=== PATIENT | male | born 1980 | race Caucasian/White ===

== ENCOUNTER 2024-09-17 13:37 | Emergency (ER) | payer OTHER, SELFPAY ==
--- NOTE | 2024-09-17 13:39 | ED_ITS ---
HPI - Extremity Problem General Chief complaint: Extremity Problem,Nontraumatic Stated complaint: Right Leg Hot/Red Time Seen by Provider: 09/17/24 13:52 Source: patient, RN notes reviewed and old records reviewed Mode of arrival: ambulatory Limitations: no limitations History of Present Illness HPI Narrative: 44-year-old male presents to the [facility] with right lower leg painful, hot, swollen. History of a DVT in the same leg. States that started approximately 1-1 and half weeks ago. Has been traveling a lot for work. Currently not on any blood thinners. Does have a history of high blood pressure. Onset (ago): week(s) (1-1.5) Related Data Home Medications ?Medication ?Instructions ?Recorded ?Confirmed ?Last Taken ?Type carvedilol 12.5 mg tablet mg 09/17/24 Unknown History hydrochlorothiazide 25 mg tablet mg 09/17/24 Unknown History Allergies Allergy/AdvReac Type Severity Reaction Status Date / Time No Known Allergies Allergy Verified 09/17/24 13:54 Review of Systems Review of Systems: All systems reviewed & are unremarkable except as noted in HPI and below Constitutional: Constitutional: Reports no additional constitutional complaint s ENT: Reports system reviewed and no additional complaints, except as documented Cardiovascular: Cardiovascular: Reports no additional cardiovascular complaints, Denies chest pain and Denies dyspnea Respiratory: Respiratory: Reports no additional respiratory complaints, Denies chest congestion, Denies cough and Denies dyspnea Musculoskeletal: Musculoskeletal: Reports as per HPI and Reports abnormal gait Integumentary/Breasts: Skin/Breast: Reports system reviewed and no additional complaints, except as docu PMFSH Past Medical History Medical History History of high blood pressure History of DVT in adulthood Comments At the time of my signature, I reviewed and agree with the nursing past medical, surgical, social, and family history. There is no relevant family history pertinent to the patient complaint. Exam Const: General: cooperative, healthy appearing, comfortable, no acute distress, well developed, alert and well nourished Nutritional Appearance: well nourished Orientation/consciousness: patient oriented x3 Limitations: no limitations HENMT: Head: normal to inspection Eyes: General: appearance normal, both eyes and all related structures Alignment and Position: alignment normal Neck: Neck: normal visual inspection, full ROM, no lymphadenopathy and no meningeal signs Chest: Chest palpation & inspection: normal inspection of the chest Resp: Effort & Inspection: normal respiratory effort and able to speak in complete sentences Cardio: Rate: regular rate Skin: General skin exam: no rashes or lesions noted Neuro: General: patient oriented x3, moves all extremities and no meningeal signs Cognition (Neuro): normal cognition Speech: normal speech Gait exam (Neuro): Normal gait present Extrem: General: normal to inspection, full ROM, capillary refill normal, abnormal gait and edema right Right lower extremity: lower leg Details: erythema, tenderness and warmth; no ecchymosis and no crepitus Other: Patient with right lower leg edema, 3 cm greater than left. Patient with significant erythema, circumferential Psych: Appearance: grossly normal and well kempt Mental Status: mental status grossly normal Speech and movement: Normal speech and movement present and Clear speech present Affect: normal affect Attitude: cooperative Course Course Level of Care: Express Care Visit Vital Signs Vital signs: Vital Signs Temperature 99.1 F 09/17/24 13:44 Pulse Rate 78 09/17/24 13:44 Respiratory Rate 20 09/17/24 13:44 Blood Pressure 163/98 H 09/17/24 13:44 Pulse Oximetry 95 09/17/24 13:44 Oxygen Delivery Room Air 09/17/24 13:44 Temperature 99.1 F 09/17/24 13:44 Pulse Rate 78 09/17/24 13:44 Respiratory Rate 20 09/17/24 13:44 Blood Pressure 163/98 H 09/17/24 13:44 Pulse Oximetry 95 09/17/24 13:44 Oxygen Delivery Room Air 09/17/24 13:44 Reviewed Transfer Transfered to: [facility] Transportation: Other (POV) Transfer rationale: Patient with swelling, 3 cm greater than opposite leg, redness, history of DVT sending to rule out DVT Accepting physician: Dr. Gonsales, spoke with Sampson CABA MDM - Extremity (Nontraumatic) MDM Narrative Medical decision making narrative: Patient sitting in exam room. Nontoxic, vitals stable. Patient in no acute distress. Patient presents with right lower leg pain, swelling, redness for1- 1.5 weeks. Patient history of DVT in same leg, sending to rule out Transfer instructions reviewed with patient go directly to the ER. All questions have been answered, and the patient deny any further questions Some parts of this dictation were generated by voice recognition software and may contain typographical and/or grammatical inaccuracies. Differential Diagnosis Differential diagnosis: Likely cellulitis, superficial thrombophlebitis, lower extremity edema and deep vein thrombosis of lower extremity Critical Care Time Critical Care Time Critical Care Time: No Discharge Plan Discharge Clinical Impression: Lower extremity edema, History of deep venous thrombosis (DVT) of distal vein of right lower extremity Patient Disposition: Acute Care Hospital Condition: Stable Patient Language: Malaysian Prescriptions: No Action carvedilol 12.5 mg tablet hydrochlorothiazide 25 mg tablet Follow-up/Referrals: UNKNOWN,DOCTOR [Primary Care Provider] -
[2024-09-17 13:44] VITALS: BP 163/98; PULSE 78; RESP 20; TEMP 37.3; O2SAT 95
--- OUTSIDE RECORDS SUMMARY | 2024-09-17 13:44 | XMS_ITS | Encounter Summary ---
Author Organization [facility] Address [address] [place] [address] Care Team Providers Care Leaf Stripper Name Role Phone ShermanLulú bingham Leopoldo MANAGER SEARCH ENGINE Primary Care Provider [phone] Encounter Details Date Type Department Care Team (Late Contact Info) Description 07/20/2024 Orders Only [facility] Primary Care [place] [address] [facility] [address] [place] [address] Tarsha Kendrick NP [address] [facility] [address] [place] [address] Lesion of left eyelid Social History Tobacco Use Types Packs/Day Years Used Date Smoking Tobacco: Never Smokeless Tobacco: Never Alcohol Use Standard Drinks/Week Comments Yes 0 (1 standard drink = 0.6 oz pur e alcohol) occ Sex and Gender Information Value Date Recorded Sex Assigned at Not on file Legal Sex Male 10:06 PM CDT Gender Identity Not on file Sexual Orientation Not on file documented as of this encounter Plan of Treatment Upcoming Encounters Date Type Department Care Team (Late Contact Info) Description 05/16/2025 9:45 AM AIR AND MISSILE DEFENSE CREWMEMBER [facility] [address] [place] [phone] Dawit Ballesteros MD [address] [place] [address] documented as of this encounter Procedures Procedure Name Priority Date/Time Associated Diagnosis Comments AMB REFERRAL TO DERMATOLOGY Routine 07/20/2024 12:07 PM AIR AND MISSILE DEFENSE CREWMEMBER Lesion of left eyelid documented in this encounter Results * Ambulatory referral to Dermatology (07/20/2024 12:07 PM AIR AND MISSILE DEFENSE CREWMEMBER) Tarsha Kendrick NP OUTPATIENT REFERRAL ORDERABLES F inal Result documented in this encounter Visit Diagnoses Diagnosis Lesion of left eyelid documented in this encounter Care Teams Leaf Stripper Relationship Specialty Start Date End Date Lulú Marks NP PCP - General Nurse Practitioner Family 05/20/23 documented as of this encounter
--- OUTSIDE RECORDS SUMMARY | 2024-09-17 13:45 | XMS_ITS | Clinical Summary ---
Author Organization [facility] Address [address] [place] [address] Care Team Providers Care Supervisor Firearms Name Role Phone Lulú Marks Ann GUITAR INSTRUCTOR Primary Care Provider [phone] Allergies No known active allergies Medications cyclobenzaprine (FLEXERIL) 10 MG tablet TAKE 1 TABLET (10 MG TOTAL) BY MOUTH 2 (TWO) TIMES A DAY NEEDED FOR MUSCLE SPASMS 09/13/2023 Active hydroCHLOROthiaz oscar (HYDRODIURIL) 25 MG tablet Take 1 tablet (25 mg total) by mouth every morning. 30 tablet 11 10/23/2023 Active carvedilol (COREG) 12.5 MG tablet Take 1 tablet (12.5 mg total) by mouth 2 (two) times daily. 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) 024 Hypertension Family History Medical History Relation Comments Stroke Father Stroke Maternal Grandfather Open Heart Maternal Grandmother Stent Cardiac Maternal Grandmother Heart Attack Paternal Grandfather Open Heart Paternal Grandfather Stent Cardiac Paternal Grandfather Stroke Paternal Grandfather Relation Status Comments Father Alive Maternal Grandfather Maternal Grandmother Mother Alive Paternal Grandfather Social History Tobacco Use Types Packs/Day Years Used Date Smoking Tobacco: Never Smokeless Tobacco: Never Tobacco Cessation:Counseling Given: Not Answered Alcohol Use Standard Drinks/Week Comments No 0 (1 standard drink = 0.6 oz pur e alcohol) Sex and Gender Information Value Date Recorded Sex Assigned at Not on file Legal Sex Male 4:41 PM MACHINE TENDER Gender Identity Not on file Sexual Orientation Not on file Last Filed Vital Signs Vital Sign Reading Time Taken Comments Blood Pressure 116/80 03/12/2024 1:16 PM CDT Pulse 90 03/12/2024 1:16 PM CDT Temperature 38.8 C (101.8 F) 08/20/2017 6:07 PM MACHINE TENDER told Abigail Everett NP pt's temp. Pt to take tylenol at home. Respiratory Rate 18 08/20/2017 4:49 PM MACHINE TENDER Oxygen Saturation 96% 03/12/2024 1:1 6 PM CDT Inhaled Oxygen Concentration - - Weight 122 kg (269 lb) 03/12/2024 1:16 PM CDT Height 185.4 cm (6' 1 ) 03/12/2024 1:16 PM CDT Body Mass Index 35.49 03/12/2024 1:16 PM CDT Plan of Treatment Health Maintenance Due Date Last Done Comments Colorectal Cancer Screening Colonoscopy (10 Years) 1979 Annual Physical 1982 DTaP, Tdap and Td Vaccines (5 - Tdap) 1990 10/24/1980, 1979, 1979, Additional history exists Hepatitis C 1997 Hepatitis B Vaccines (1 of 3 - 19+ 3-dose series) 1998 COVID-19 Vaccine ( season) 2024 HPV Vaccines Aged Out No longer eligi ble based on patient's age to complete this topic Meningococcal B Vaccine Aged Out No l onger eligible based on patient's age to complete this topic Meningococcal Vaccine Aged Out No jennifer armando eligible based on patient's age to complete this topic Pneumococcal Vaccine: Pediatrics (0 to 5 Years) and At-Risk Patients (6 to 64 Years) Aged Out No longer eligible based on patient's age to complete this topic RSV Immunizations Under 20 Months Aged Out No longer eligible based on patient's age to complete this topic Insurance [employer] [facility] Care Teams Supervisor Firearms Relationship Specialty Start Date End Date Lulú Marks FNP [facility] [address] [place] [address] PCP - General FAMILY PRACTICE 10/22/23
--- OUTSIDE RECORDS SUMMARY | 2024-09-17 13:45 | XMS_ITS | Clinical Summary ---
Author Organization [facility] Address [address] [place] [address] Care Team Providers Care Gold Tooler Name Role Phone Lulú Marks BITUMINOUS PAVING MACHINE OPERATOR-C Primary Care Provider [phone] Allergies No known active allergies Medications Medication Sig Dispensed Refills Start Date End Date Status cyclobenzaprine (FLEXERIL) 10 MG tablet Take 1 tablet (10 mg) by mouth 2 times daily as needed 12/31/2021 Active Active Problems No known active problems Encounters Date Type Department Care Team Description 08/04/2024 9:50 AM OWNER ORAL SURGEON Procedure visit [facility] [address] [place] [address] Lee Chino MD Sacroiliitis, not elsewhere classified 07/29/2024 8:40 AM OWNER ORAL SURGEON Ancillary Procedure [facility] [address] [place] [address] Lee Chino MD Low back pain, unspecified back pain laterality, unspecified chronicity, unspecified whether sciatica present 07/29/2024 8:40 AM OWNER ORAL SURGEON Office Visit [facility] [address] [place] [address] Lee Chino MD Other chronic pain (Primary Dx); Sacroiliitis, not elsewhere classified; Low back pain, unspecified back pain laterality, unspecified chronicity, unspecified whether sciatica present; Lumbar spondylosis; Degeneration of intervertebral disc of lumbar region, unspecified whether pain present 07/28/2024 Orders Only [facility] [address] [place] [address] Lee Chino MD Low back pain, unspecified back pain laterality, unspecified chronicity, unspecified whether sciatica present (Primary Dx) from Last 3 Months Family History Medical History Relation Name Comments Alzheimer's Disease Other Diabetes Other Heart Disease Other High Cholesterol Other Rheum Arthritis Other Relation Name Status Comments Other Social History Tobacco Use Types Packs/Day Years Used Date Smoking Tobacco: Never Smokeless Tobacco: Never Tobacco Cessation:Counseling Given: Not Answered Sex and Gender Information Value Date Recorded Sex Assigned at Not on file Gender Identity Not on file Sexual Orientation Not on file Last Filed Vital Signs Vital Sign Reading Time Taken Comments Blood Pressure 128/84 08/04/2024 10:27 AM OWNER ORAL SURGEON Pulse - - Temperature - - Respiratory Rate - - Oxygen Saturation - - Inhaled Oxygen Concentration - - Weight 117.9 kg (260 lb) 08/04/2024 10:27 AM OWNER ORAL SURGEON Height 185.4 cm (6' 1 ) 08/04/2024 10:27 AM OWNER ORAL SURGEON Body Mass Index 34.3 08/04/2024 10:27 AM OWNER ORAL SURGEON Plan of Treatment Upcoming Encounters Date Type Department Care Team (Late st Contact Info) Description 11/01/2024 8:20 AM CDT Office Visit [facility] [address] [place] [address] Lee Chino MD [address] [place] [phone] Health Maintenance Due Date Last Done Comments HIV Screening 1979 Hepatitis C Screening ages 1 8 to 79 once 1979 MMR VACCINES (1 of 1 - Stand nikia series) 1980 YEARLY WELLNESS EXAM 1982 DEPRESSION SCREENING 1991 BMI Above/Below Normal Parameters 1997 ADULT TETANUS 1998 HEPATITIS B VACCINES (1 of 3 - 19+ 3-dose series) 1998 LIPID TESTING 2014 Influenza Vaccine 01/15/2024 COVID-19 Immunization (1 - 2 season) 2024 Colon Cancer Screening 2024 Zoster Vaccine (Recombinant Vaccine) (1 of 2) 2029 HEPATITIS A VACCINES Aged Out No long er eligible based on patient's age to complete this topic HIB VACCINES Aged Out No longer eligi ble based on patient's age to complete this topic HPV VACCINES Aged Out No longer eligi ble based on patient's age to complete this topic IPV VACCINES Aged Out No longer eligi ble based on patient's age to complete this topic MENINGOCOCCAL VACCINE Aged Out No jennifer armando eligible based on patient's age to complete this topic Pneumococcal Vaccine: Peds(0 to 5 Years) & At-Risk Patients (6 to 64 Years) Aged Out No longer eligible b ased on patient's age to complete this topic ROTAVIRUS VACCINES Aged Out No longer eligible based on patient's age to complete this topic Procedures Procedure Name Priority Date/Time Associated Diagnosis Comments CA INJECT SI JOINT ARTHRGRPHY&/ANES/ST EROID W/ELOISA Routine 08/04/2024 9:50 AM OWNER ORAL SURGEON Sacroiliitis, not elsewhere classified XR LUMBAR SPINE MIN 4 VIEWS Routine 07/29/2024 9:07 AM OWNER ORAL SURGEON Low back pain, unspecified back pain laterality, unspecified chronicity, unspecified whether sciatica present XR PELVIS 1 OR 2 VIEWS Routine 07/29/2024 9:07 AM OWNER ORAL SURGEON Low back pain, unspecified back pain laterality, unspecified chronicity, unspecified whether sciatica present from Last 3 Months Results * CA INJECT SI JOINT ARTHRGRPHY&/ANES/STEROID W/ELOISA (08/04/2024 9:50 AM OWNER ORAL SURGEON) Narrative Lee Chino MD - 08/04/2024 9:50 AM OWNER ORAL SURGEON Lee Chino MD 08/04/2024 1:26 PM Patient: Nickolas Echavarria Date of : 1980 Date: 08/04/24 Visit Type: Procedure PROCEDURE Vital Signs Vitals: 08/04/24 1027 BP: 128/84 Weight: (!) 260 lb (117.9 kg) Height: 6' 1 Pre Procedure Sacroiliac Joint Injection Bilateral SUBJECTIVE: This patient presents with a diagnosis of Right and Left sacroiliitis. Patient has tried conservative therapy and medications for at least 6 months which have provided no significant relief. Patient is here today for Right and Left sacroiliac joint injection. OBJECTIVE: Heart: No pitting edema. Lungs: No labored breathing. Abdomen: Nondistended. Psych: Mood is good. Musculoskeletal: No changes from last encounter. ASSESSMENT: Chronic Pain. Bilateral sacroiliitis PLAN: I will do Sacroiliac Joint Injection Right and Left today. Procedure Sacroiliac Joint Injection Bilateral PRE-PROCEDURE DIAGNOSIS: 1. Chronic pain. 2. Right and Left sacroiliitis. POST-PROCEDURE DIAGNOSIS: 1. Chronic pain. 2. Right and Left sacroiliitis. PROCEDURE: Bilateral sacroiliac joint injection, with fluoroscopy. INDICATION FOR PROCEDURE: This patient has sacroiliac joint pain. Patient is here today for sacroiliac joint injection. INFORMED CONSENT: After reviewing the procedure including the risks (including bleeding, infection, nerve damage), benefits and alternatives with the patient, an informed consent was obtained to proceed with the injection and the consent form was signed. DESCRIPTION OF THE PROCEDURE: The patient was placed in the prone position on the fluoroscopy table. Fluoroscopy was used to identify the needle entry point for the right sacroiliac joint injection, to reach the inferior aspect of the joint. The sacral and buttock area was prepped with chlorhexidine solution and draped with sterile drape. Sterile technique was used for the entire procedure. The needle entry point was infiltrated with 20 mg of lidocaine 1% . A 25-gauge spinal needle was advanced to the posterior margin of the inferior aspect of the sacroiliac joint. With the needle in the appropriate position, 20 mg of kenalog 40 mg/ml with 12.5 mg 0.5 % bupivacaine for a total volume of 3.0 mL was injected. Fluoroscopic images were saved during the injection. The procedure was repeated on the opposite side with the same amount of corticosteroids and local anesthetic. A total of 40 mg of kenalog 40mg/mL was used. Fluoroscopic images were saved during the injection today. ASSESSMENT: The procedure was well tolerated and there were no apparent complications. The patient had decreased pain from the injected local anesthetic. DISCHARGE PLAN: Discharge instructions were given by nursing staff. DISPOSITION: The patient was discharged home. Lee Chino MD TITomás: Gray Chow Lee Chino MD PROCEDURE/MINOR SURG ICAL ORDERABLES * XR PELVIS 1 OR 2 VIEWS (07/29/2024 9:07 AM OWNER ORAL SURGEON) Anatomical Region Laterality Modality Pelvis Computed Radiogr aphy Impressions 08/02/2024 10:42 AM OWNER ORAL SURGEON : A/P Pelvis 1 or 2 Views shows Left iliac crest higher than right iliac crest , Right pubic symphysis wider than left pubic symphysis , and Moderate osteoarthritis Lumbosacral Min 4 Views shows Moderate DDD and Moderate spondylosis COMMENTS: For additional information on recommendations, please see office note. Narrative 08/02/2024 10:42 AM OWNER ORAL SURGEON IMAGING PROCEDURE: XR PELVIS 1 OR 2 VIEWS INDICATION: Low back pain, unspecified back pain laterality, unspecified chronicity, unspecified whether sciatica present Lee Chino MD [facility] IM DIAG ORDERAB LES * XR LUMBAR SPINE MIN 4 VIEWS (07/29/2024 9:07 AM OWNER ORAL SURGEON) Anatomical Region Laterality Modality L-spine Computed Radiogr aphy Impressions 08/02/2024 10:42 AM OWNER ORAL SURGEON : A/P Pelvis 1 or 2 Views shows Left iliac crest higher than right iliac crest , Right pubic symphysis wider than left pubic symphysis , and Moderate osteoarthritis Lumbosacral Min 4 Views shows Moderate DDD and Moderate spondylosis COMMENTS: For additional information on recommendations, please see office note. Narrative 08/02/2024 10:42 AM OWNER ORAL SURGEON IMAGING PROCEDURE: XR LUMBAR SPINE MIN 4 VIEWS INDICATION: Low back pain, unspecified back pain laterality, unspecified chronicity, unspecified whether sciatica present Lee Chino MD [facility] DIAG ORDERAB LES from Last 3 Months Care Teams Gold Tooler Relationship Specialty Start Date End Date Lulú Marks FNP-Gray [address] [place] [address] PCP - General Nurse Practitioner-Family 07/29/24
--- OUTSIDE RECORDS SUMMARY | 2024-09-17 13:45 | XMS_ITS | Encounter Summary ---
Author Organization [facility] Address [address] [place] [address] Care Team Providers Care Loading Supervisor Name Role Phone Lulú Marks Primary Care Provider [phone] Encounter Details Date Type Department Care Team (Late st Contact Info) Description 10/23/2023 Abstract [facility] [address] [place] [address] Max Krishnamurthy MD [address] [place] [address] Social History Tobacco Use Types Packs/Day Years Used Date Smoking Tobacco: Never Smokeless Tobacco: Never Alcohol Use Standard Drinks/Week Comments No 0 (1 standard drink = 0.6 oz pur e alcohol) Sex and Gender Information Value Date Recorded Sex Assigned at Not on file Legal Sex Male 4:41 PM SPLICER HELPER Gender Identity Not on file Sexual Orientation Not on file documented as of this encounter Plan of Treatment Not on file documented as of this encounter Visit Diagnoses Not on filedocumented in this encounter Care Teams Loading Supervisor Relationship Specialty Start Date End Date Lulú Marks FNP [address] [place] [address] PCP - General FAMILY PRACTICE 10/22/23 documented as of this encounter
--- OUTSIDE RECORDS SUMMARY | 2024-09-17 13:45 | XMS_ITS | Continuity of Care Document ---
Author Organization [facility] Address [address] [place] [address] Phone Care Team Providers Care Access Assoc Name Role Phone Lee Chino MD Unavailable Unavailable Allergies, Adverse Reactions, Alerts Substance Reaction Status Criticality No Known Allergies Active No Inform ation Medications Medication Instructions Dosage Effective Dates (start - stop) Status Comments cyclobenzaprine 7.5 mg tablet - Active Procedures Procedure Date Kenalog Inj Procedure Sacroilliac Joint w/fluoro scopy Inc Arthrography Inj Procedure Sacroilliac Joint w/fluoro scopy Inc Arthrography UN10 Kenalog Office/outpatient visit,est, mod 2023 Inj Procedure Sacroilliac Joint w/fluoro scopy Inc Arthrography UN10 Kenalog Spine Xray Lumbosacral Min Of 4 Views Ma Pelvis Xray 1 Or 2 Views (Includes Judet ) Office/outpatient visit,est, mod 2023 UN10 Kenalog Inj Procedure Sacroilliac Joint w/fluoro scopy Inc Arthrography Office/outpatient visit,est, mod 2022 Inj(s) Lumbar Epidural W Fluoro Guidance UN10 Kenalog Inj Procedure Sacroilliac Joint w/fluoro scopy Inc Arthrography UN10 Kenalog Spine Xray Lumbosacral Min Of 4 Views Pelvis Xray 1 Or 2 Views (Includes Judet ) [place] [facility] [place] Initial inpatient consult, minor 2007 Advance Directives Directive Yes / No Effective Date File Name No Information Encounters Encounter Description Practice Location Reason(s) For Visit Diagnoses Date Provider Providers Copied on Encounter [facility], [address] [place] [address], [id number], tel:[phone] OI Procedure Room Sacroiliitis, not elsewhere classifiedOther chronic painElevated blood-pressure reading, w/o diagnosis of htn 4 Matti Howard. [address], [place], [place], [id number] , [place]. tel:[phone] Referring Provider: Lee Rao, [address], [place], [address] . tel:[phone] Office/outpa tient visit,est, mod [facility], [address] [place] [address], [id number], tel:[phone] [place] Office lumbar spine (chief complaint) Elevated blood-pressure reading, w/o diagnosis of htnBody mass index (BMI) 34.0-34.9, adultOther chronic painSacroiliitis, not elsewhere classified 4 Matti Howard. [address], [place], [place], [id number] , [place]. tel:[phone] Referring Provider: Lee Rao, [address], [place], [address] . tel:[phone] [facility], [address] [place] [address], [id number], tel:[phone] OI Procedure Room Body mass index (BMI) 34.0-34.9, adultEncounter for exam of blood pressure w/o abnormal findingsOther chronic painSacroiliitis, not elsewhere classified 4 Matti Howard. [address], [place], [place], [id number] , [place]. tel:[phone] Referring Provider: Lee Rao, [address], [place], [address] . tel:[phone] Office/outpa tient visit,[facility], [address] [place] [address], [id number], tel:[phone] [place] [facility] lumbar spine pain (chief complaint) Body mass index (BMI) 34.0-34.9, adultOther chronic painLow back pain, unspecifiedSacroi liitis, not elsewhere classifiedLumbar spondylosisDDD (degenerative disc disease), lumbar Aug-0 4 Matti Howard. [address], [place], [place], [id number] , [place]. tel:[phone] Referring Provider: Lee Rao, [address], [place], [address] . tel:[phone] [facility], [address] [place] [address], [id number], tel:[phone] OISI Procedure Room Sacroiliitis, not elsewhere classifiedOther chronic pain 3 Matti Howard. [address], [place], [place], [id number] , [place]. tel:[phone] Referring Provider: Lee Rao, [address], [place], [address] . tel:[phone] Office/outpa tient visit,[facility], [address] [place] [address], [id number], tel:[phone] [place] [facility] lumbar spine (chief complaint) Body mass index (BMI) 34.0-34.9, adultEncounter for exam of blood pressure w/o abnormal findingsLow back pain, unspecifiedSacroi liitis, not elsewhere classifiedOther chronic pain Apr- 3 Matti Howard. [address], [place], [id number] , [place]. tel:[phone] Referring Provider: Lee Rao, [address], [place], [address] . tel:[phone] [facility], [address] [place] [address], [id number], tel:[phone] OI Procedure Room Radiculopathy, lumbar regionOther chronic pain Jan- 3 Matti Howard. [address], [place], [id number] , [place]. tel:[phone] Referring Provider: Lee Rao, [address], [place], [address] . tel:[phone] [facility], [address] [place] [address], [id number], tel:[phone] OI Procedure Room Sacroiliitis, not elsewhere classifiedOther chronic pain 3 Matti Howard. [address], [place], [id number] , [place]. tel:[phone] Referring Provider: Lee Rao, [address], [place], [address] . tel:[phone] Office/outpa tient visit,[facility], [address] [place] [address], [id number], tel:[phone] [place] Office lumbar spine (chief complaint) Low back pain, unspecifiedOther chronic painLumbar spondylosisDDD (degenerative disc disease), lumbarSacroiliiti s, not elsewhere classifiedLumbar radiculopathy Jan-0 3 Matti Howard. [address], [place], [id number] , [place]. tel:[phone] Referring Provider: Lee Rao, [address], [place], [address] . tel:[phone] Initial inpatient consult, minor [facility], [address] [place] [address], [id number], tel:[phone] [facility] No Information [address], [place], [place], [id number] , [place]. tel:[phone] Family History Family Member Type Diagnosis Age At Onset Problem Family history of hyperchole sterolemia Problem Family history of alzheimer' s disease Problem Family history of Diabetes m ellitus Problem Family history of Arthritis Problem Family history of chronic ob structive lung disease Problem Family history of Cardiovasc ular disease Payers Payer name Insurance type Covered green party ID Loly jane(s) Zafar [id number] Social History Type Description Quantity Date Captured Comments Alcohol Use Details Unknown Caffeine Use Details Unknown Tobacco Use Status No Information Smoking Status No Information Sex Male Vital Signs Date / Time: Height Weight BMI Pulse Rate Blood Pressure Temperature Respiratory Rate Body Surface Area Head Circumference Head Circ. Percentile Wt./Rizwan. Percentile BMI percentile Pulse Ox Inhaled Ox 8:54 AM 73.00 in 69 /min 141/93 mm[Hg] Chief Complaint And Reason For Visit No Information Reason For Referral Reason For Referral No Information Plan Of Treatment Date Type Action Status Future Order: Radiology Order Pe lvis Xray 1 Or 2 Views (Includes Judet) ([id number]), Ordered on: Ordered Future Order: Radiology Order Sp ine Xray Lumbosacral Min Of 4 Views ([id number]), Ordered on: Ordered Future Order: Radiology Order Pe lvis Xray 1 Or 2 Views (Includes Judet) ([id number]), Ordered on: Ordered Future Order: Radiology Order Sp ine Xray Lumbosacral Min Of 4 Views ([id number]), Ordered on: Ordered History Of Present Illness Encounter Date Complaint History Of Prese nt Illness lumbar spine Mr Echavarria is a 43 year old male who complains of lumbar spine. He presents with pain. He states that the symptoms have been chronic non-traumatic. The symptoms occur constantly with intermittent worsening. Currently the patient states that the symptoms are moderate-severe. The pain is described as aching and constant, pressure, and spasms. The symptoms occur continuously. He rates his best pain as 7/10. He rates his current pain as 8/10. Prior muscle relaxants include flexeril. Patient had bilateral SI joint injections on 08/22/23 with 80% pain relief with increased daily function over the course of 3 months. Patient has had previous therapy. Patient has attended at least 6 weeks of physical therapy in the past year and does physician directed at home exercises daily. lumbar spine pain Mr Echavarria is a 43 year old male who complains of lumbar spine pain. He presents with pain. He states that the symptoms have been chronic non-traumatic. The symptoms occur constantly with intermittent worsening. Currently the patient states that the symptoms are moderate-severe. The pain is described as aching and pressure, tingling, sharp, stabbing, spams. The symptoms occur continuously. He rates his current pain as 8/10. Patient had bilateral SI joint injection 05/21/24 with 80% pain relief and increased function for at least 3 months. Patient has had previous therapy. Patient had at least 6 weeks of physical therapy with minimum relief. lumbar spine Mr Echavarria is a 43 year old male who complains of lumbar spine. He presents with pain. The patient states that the symptoms have been chronic non-traumatic for Over 6 months. The symptoms occur constantly with intermittent worsening. Currently the patient states that the symptoms are moderate-severe. The pain is described as aching, dull and numbness, tingling, sharp, spasms. The symptoms occur continuously. The patient is experiencing pain in the following location: lower back. He rates his current pain as 7/10. The patient has had a previous x-ray. Prior NSAIDs include unspecified NSAIDS. Patient received a bilateral SI joint injection on 01/24/2023. Patient reported 80% pain relief with increased daily function for 2 months. Patient also received a right L5-S1 lumbar epidural steroid injection on 02/07/2023. Patient reported 80% pain relief with increased daily function for 2 months. Patient previously completed at least 6 weeks of formal physical therapy on his low back within the last 6 months and stated that it was helpful in relieving his low back pain when completed. lumbar spine Mr Echavarria is a 42 year old male who complains of lumbar spine. He presents with pain. He states that the symptoms have been chronic non-traumatic. The symptoms occur constantly with intermittent worsening. Currently the patient states that the symptoms are moderate-severe. The pain is described as numbness, tingling, sharp, shooting, spasms, stabbing. The symptoms occur continuously. The patient is experiencing pain in the following location: lower back. He rates his best pain as 5/10. He rates his worst pain as 9/10. He rates his current pain as 8/10. The pain radiates from the lower back then to the right foot. The symptoms are aggravated by standing and walking. Nickolas states that the symptoms are relieved by bending and sitting. The patient has had a previous x-ray and MRI. Prior muscle relaxants include flexeril. He reports no change. Prior NSAIDs include unspecified NSAIDS. Prior pain medications include tylenol. Patient has not previously received an injection for his low back pain. Patient stated that he previously attended 6 weeks of formal physical therapy at [facility] in [place], [place]. Patient finished PT in June 2022 and reports it was ineffective. Patient reports he does home exercises regularly. Patient reports no history of lumbar spine surgery. Patient reports he does not desire surgery at this time. Functional Status Date Functional Assessmen t No Information Instructions Date Instruction Additional Infor emory Giving encouragement to exercise Related to Elevated blood-pressure reading w/o diagnosis of HTN Patient presented wi th lower back pain consistent with sacroiliitis that is impacting the patient's ability to complete activities of daily living and rates their pain at a 6/10. The patient has completed at least 6 weeks of physical therapy/physician directed home exercises with minimal relief. The patient has tried oral medications with minimal relief. The patient does not desire surgery at this time. I do believe that the patient will benefit from a bilateral SI joint injection.Bilateral SI joint injection - patient continues to present with pain despite conservative treatment. I will perform a bilateral SI joint steroid injection. Risks, benefits, procedure were explained to the patient. Patient is willing to proceed with the injection. Patient was shown home exercise, small circles, patient was able to reverse demonstrate. Patient was instructed to complete exercise for 3-5 minutes before every meal and at bedtime. Patient will return to clinic after 12 weeks after injection, sooner if needed. Patient agrees to plan. Clinical information from today's visit shared with patient's PCP. Related to Other chronic pain Giving encouragement to exercise Related to Elevated blood-pressure reading, w/o diagnosis of htn Giving encouragement to exercise Related to Body mass index [BMI] 34.0-34.9, adult Giving encouragement to exercise Related to Body mass index [BMI] 34.0-34.9, adult Hypertension education Related t o BP check Patient presented wi th lower back pain consistent with sacroiliitis -- moderate to severe pain between the upper level of the iliac crests and the gluteal fold. Furthermore, the patient presents with positive Gaenslen's, Slick's, Thigh thrust testing. The patient rates this pain at an intensity of at least 8-9/10 and states that it began over 3 months ago. The patient has completed at least 6 weeks of physical therapy / physician directed home exercises with minimal relief but will continue the home exercise plan. The patient has received 80% pain relief and increased function from previous steroid injections. I do believe that the patient will benefit from bilateral SI joint injections.Patient has received X-rays of the lumbar spine without contrast within the past 6 months Bilateral SI joint injection - patient continues to present with pain despite conservative treatment. I will perform a bilateral SI joint steroid injection. Risks, benefits, procedure were explained to the patient. Patient is willing to proceed with the injection.Patient was shown home exercise, small circles, patient was able to reverse demonstrate. Patient was instructed to complete exercise for 3-5 minutes before every meal and at bedtime.Patient will return to clinic after 12 weeks, sooner if needed. Patient agrees to plan.Clinical information from today's visit shared with patient's PCP. Related to Other chronic pain Giving encouragement to exercise Related to Body mass index [BMI] 34.0-34.9, adult Giving encouragement to exercise Related to Body mass index [BMI] 34.0-34.9, adult Patient presented wi th lower back pain consistent with sacroiliitis -- moderate to severe pain between the upper level of the iliac crests and the gluteal fold. Furthermore, the patient presents with positive Gaenslen's, Slick's, Thigh thrust testing. The patient rates this pain at an intensity of at least 6/10 and states that it began over 3 months ago. The patient has completed at least 6 weeks of physical therapy/physician directed home exercises with minimal relief but will continue the home exercise plan. The patient has received 80% pain relief and increased function from previous steroid injections. I do believe that the patient will benefit from bilateral SI joint injections. Bilateral SI joint injection - patient continues to present with pain despite conservative treatment. I will perform a bilateral SI joint steroid injection. Risks, benefits, procedure were explained to the patient. Patient is willing to proceed with the injection. Patient has received X-rays of the lumbar spine without contrast within the past 6 months. Patient was shown home exercise, small circles, patient was able to reverse demonstrate. Patient was instructed to complete exercise for 3-5 minutes before every meal and at bedtime.Patient will return to clinic after 12 weeks, sooner if needed. Patient agrees to plan.Clinical information from today's visit shared with patient's PCP. Related to Other chronic pain Giving encouragement to exercise Related to Body mass index [BMI] 34.0-34.9, adult Giving encouragement to exercise Related to Blood pressure check I reviewed [facility] contrast dated 03-11-22 at [facility] imaging report and imaging reviewed with the patient shows disc protrusion with mild narrowing of central canal and neural foramina at L4-5, disc herniation at L5-S1, and diffuse bulge at L2-3 and 3-4.Patient presented with lower back pain consistent with sacroiliitis that is impacting the patient's ability to complete activities of daily living. The patient has tried oral medications with minimal relief. The patient does not desire another surgery at this time. I do believe that the patient will benefit from a bilateral SI joint injection. Bilateral SI joint injection - patient continues to present with pain despite conservative treatment. I will perform a bilateral SI joint steroid injection. Risks, benefits, procedure were explained to the patient. Patient is willing to proceed with the injection. Patient presented with radiating pain from the right side of the lower back down the leg. The patient has tried oral medications with minimal relief and does not desire surgery at this time. I do believe that the patient will benefit from a right L5-S1 LESI.right L5-S1 LESI - patient continues to present with pain despite conservative treatment. I will perform a right L5-S1 lumbar epidural steroid injection. Risks, benefits, procedure were explained to the patient. Patient is willing to proceed with the injection.patient presented to the clinic with sacroiliitis and lumbar radiculopathy. I believe the patient will benefit from formal physical therapy for his low back at [facility] in [place] with Kourtney. Patient was shown home exercise, small circles, patient was able to reverse demonstrate. Patient was instructed to complete exercise for 3-5 minutes before every meal and at bedtime.Patient will return to clinic after 12 weeks, sooner if needed. Patient agrees to plan.Clinical information from today's visit shared with patient's PCP. Related to Other chronic pain Assessments Type Assessment Date assessment Sacroiliitis, not elsewhere clas sified assessment Other chronic pain assessment Elevated blood-pressure reading w/o diagnosis of HTN Patient Care Teams Name Effective Dates (start - stop) Status Members No Information
--- OUTSIDE RECORDS SUMMARY | 2024-09-17 13:45 | XMS_ITS | Clinical Summary ---
Author Organization [facility] Address [address] [place] [address] Care Team Providers Care Pediatric Lpn Name Role Phone Lulú Marks Leopoldo WINSTON Primary Care Provider [phone] Allergies No known active allergies Medications cyclobenzaprine (FLEXERIL) 10 mg tabletIndication s:Lumbar paraspinal muscle spasm Take 1 tablet (10 mg total) by mouth 2 (two) times a day as needed for muscle spasms 60 tablet 4 Active carvediloL (COREG) 12.5 mg tablet Take 1 tablet (12.5 mg total) by mouth 2 (two) times a day 4 Active hydroCHLOROthiaz oscar (HYDRODIURIL) 25 mg tablet Take 1 tablet (25 mg total) by mouth every morning 4 Active losartan (COZAAR) 100 mg tabletIndication s:Hypertension, unspecified type Take 1 tablet by mouth once daily 30 tablet 4 Active Additional Information Patient not taking.Reported on 05/10/2024 Active Problems Problem Noted Date Diagnosed Date Rhinitis 05/10/2024 HAN (obstructive sleep apnea) 12/09/2023 Snoring 10/30/2023 Sleep disorder 10/30/2023 Lumbar paraspinal muscle spasm 09/02/2023 Hypertension 08/04/2023 Hypertensive urgency 06/29/2023 Overview (06/29/2023): TO MONITOR & JOURNAL BP. TO OBTAIN NEW CUFF. FOLLOW LOW SODIUM DIET. AVOID STRENOUS ACTIVITY UNTIL BP LOWERS. TO SEEK ER SERVICES IF WORSENING BP. 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 Encounters Date Type Department Care Team Description 07/20/2024 Orders Only [facility] Primary Care [address] [place] [address] Tarsha Kendrick, CATRACHITO Lesion of left eyelid from Last 3 Months Immunizations Name Administration Dates Next Due DTP 10/24/1980,1979,1979 ,1979 OPV 10/24/1980,1979,1979 ,1979 Social History Tobacco Use Types Packs/Day Years Used Date Smoking Tobacco: Never Smokeless Tobacco: Never Tobacco Cessation:Counseling Given: Not Answered Alcohol Use Standard Drinks/Week Comments Yes 0 (1 standard drink = 0.6 oz pur e alcohol) occ Sex and Gender Information Value Date Recorded Sex Assigned at Not on file Legal Sex Male 10:06 PM CDT Gender Identity Not on file Sexual Orientation Not on file Last Filed Vital Signs Vital Sign Reading Time Taken Comments Blood Pressure 128/82 04/08/2024 3:44 PM CDT Pulse 78 04/08/2024 3:44 PM CDT Temperature 37.1 C (98.7 F) 04/08/2024 3:44 PM CDT Respiratory Rate 18 02/11/2024 12:19 PM CDT Oxygen Saturation 97% 04/08/2024 3:44 PM CDT Inhaled Oxygen Concentration - - Weight 122 kg (270 lb) 05/10/2024 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 AM HARD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 Height 185.4 cm (6' 1 ) 05/10/2024 9:06 AM H[employer]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 Body Mass Index 35.62 05/10/2024 9:06 AM H[employer]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 Plan of Treatment Upcoming Encounters Date Type Department Care Team (Late st Contact Info) Description 05/16/2025 9:45 AM H[employer]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 [facility] [address] [place] [id number] Dawit Ballesteros MD [address] [place] [address] Health Maintenance Due Date Last Done Comments CT Colonography 1979 Colonoscopy 1979 Colorectal Cancer Screening 1979 FIT-DNA 1979 FIT 1979 FOBT 1979 Prostate Cancer Screening PSA 1979 Sigmoidoscopy 1979 MMR Vaccines (1 of 1 - Standard series) 1980 COVID-19 Vaccine (#1) 1984 DTaP,Tdap,and Td Vaccines (5 - Tdap) 1986 10/24/1980, 1979, 1979, Additional history exists Varicella Vaccines (1 of 2 - 13+ 2-dose series) 1992 Hepatitis B Vaccines (1 of 3 - 19+ 3-dose series) 1998 AMB Pneumococcal 0-64 yrs (1 of 2 - PCV) 10/28/2024 Postponed from 1985 (Not Applicable) Influenza Vaccine (Season Ended) 2025 RSV Vaccines and 60 Years or Older (1 - 1-dose 75+ series) 2054 IPV Vaccines Completed 10/24/1980, 09/15, 1979, Additional history exists HIB Vaccines Aged Out No longer eligi ble based on patient's age to complete this topic HPV Vaccines Aged Out No longer eligi ble based on patient's age to complete this topic Hepatitis A Vaccines Aged Out No long er eligible based on patient's age to complete this topic Meningococcal ACWY Vaccine Aged Out N o longer eligible based on patient's age to complete this topic Meningococcal B Vaccine Aged Out No l onger eligible based on patient's age to complete this topic RSV Vaccines <20 Months Aged Out No l onger eligible based on patient's age to complete this topic Procedures Procedure Name Priority Date/Time Associated Diagnosis Comments AMB REFERRAL TO DERMATOLOGY Routine 07/20/2024 12:07 PM [employer]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 Lesion of left eyelid from Last 3 Months Results * Ambulatory referral to Dermatology (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
== END 2024-09-17 14:10 | disposition short-term general hospital (02) ==
PROVIDERS: Emergency Provider Nurse Practitioner
DX: R60.0 Localized edema (principal); Z86.718 Personal history of other venous thrombosis and embolism; I10 Essential (primary) hypertension
CPT/HCPCS: 99202; G0463